=== PATIENT | male | born 1970 | race Two or more races ===

== ENCOUNTER 2019-10-08 20:01 | Emergency (ER) | payer SELFPAY ==
[~2019-10-08] VITALS: Ht 172.7 cm; Wt 81.6 kg
[2019-10-08 20:15] VITALS: BP 137/91
--- NOTE | 2019-10-08 20:15 | NUR ---
ED Nurse Note: Pt walked into ED from home for c/o cough, sob, fever and body aches x 5 days. Pt is aaox4, no acute dsitress noted, ambulatory with steady gait.
--- NOTE | 2019-10-08 20:43 | Emergency Room Report ---
History of Present Illness General Chief Complaint: Flu Like Symptoms Source: Patient Present Illness HPI 49-year-old male presents to the emergency department complaining persistent cough, 9 out of 10 severity sore throat, generalized body aches, subjective fevers and chills x5 days. Patient denies recent travel or ill contacts. Patient states he did not receive this years flu vaccine. Patient also reports increase in fatigue. Patient denies changes in his voice/loss of voice, neck pain/stiffness, photophobia or sudden onset headache. He reports at nighttime he takes Tylenol which provides some relief for his symptoms. Patient states he did not take any Tylenol today. No other aggravating or relieving factors at this time. Denies chest pain at rest, palpitations, cardiac history, or smoking history. Denies history of asthma or COPD. Allergies: Coded Allergies: No Known Allergies (Unverified , 10/08/19) Patient History Past Medical History: see triage record Past Surgical History: none Pertinent Family History: none Reviewed Nursing Documentation: PMH: Agreed; PSxH: Agreed Nursing Documentation-PMH Past Medical History: No Stated History Review of Systems All Other Systems: negative except mentioned in HPI Physical Exam Vital Signs Date Time Temp Pulse Resp B/P (MAP) Pulse Ox O2 Delivery O2 Flow Rate FiO2 10/08/19 20:07 98.2 65 16 137/91 (106) 96 Room Air Sp02 EP Interpretation: reviewed, normal General Appearance: no apparent distress, alert, GCS 15, non-toxic Head: normocephalic, atraumatic Eyes: bilateral eye normal inspection, bilateral eye PERRL ENT: hearing grossly normal, no angioedema, normal voice, TMs + canals normal, uvula midline, moist mucus membranes, nasal congestion, pharyngeal erythema Neck: full range of motion, no meningismus, no bony tend Respiratory: chest non-tender, lungs clear, normal breath sounds, no respiratory distress, no accessory muscle use, no wheezing, speaking full sentences Cardiovascular #1: regular rate, rhythm, no edema Musculoskeletal: normal range of motion, gait/station normal, non-tender Neurologic: alert, motor strength/tone normal, oriented x3, sensory intact, responsive, speech normal Psychiatric: judgement/insight normal Skin: no rash, normal color, normal inspection Lymphatic: no adenopathy Medical Decision Making PA Attestation Dr. Pathak is my supervising Physician whom patient management has been discussed with. Diagnostic Impression: Primary Impression: Viral upper respiratory tract infection with cough ER Course 49-year-old male presents to the emergency department complaining persistent cough, 9 out of 10 severity sore throat, generalized body aches, subjective fevers and chills x5 days. Patient denies recent travel or ill contacts. Patient states he did not receive this years flu vaccine. Patient also reports increase in fatigue. Patient denies changes in his voice/loss of voice, neck pain/stiffness, photophobia or sudden onset headache. He reports at nighttime he takes Tylenol which provides some relief for his symptoms. Patient states he did not take any Tylenol today. No other aggravating or relieving factors at this time. Denies chest pain at rest, palpitations, cardiac history, or smoking history. Denies history of asthma or COPD. Ddx considered but are not limited to URI, pneumonia, PE, strep pharyngitis, meningitis , or bronchitis just to name a few. Vital signs: Pt. is afebrile, the remaining VS are WNL H&PE are most consistent with URI- no meningeal signs, oropharynx is not involved, no evidence of bacterial infection at this time. ORDERS: none required at this time, the diagnosis is clinical ED INTERVENTIONS: None required at this time. --PT. EDUCATION: Discussed antibiotic resistance with inappropriate prescribing of antibiotics for viral illnesses. Discussed signs and symptoms to indicate viral illness versus bacterial illness. DISCHARGE: At this time pt. is stable for d/c to home. Will provide printed patient care instructions, and any necessary prescriptions. Care plan and follow up instructions have been discussed with the patient prior to discharge. Last Vital Signs Date Time Temp Pulse Resp B/P (MAP) Pulse Ox O2 Delivery O2 Flow Rate FiO2 10/08/19 20:07 98.2 65 16 137/91 (106) 96 Room Air Status: improved Disposition: HOME, SELF-CARE Condition: Stable Departure Forms: Return to Work Return to Work Date: Oct 11, 2019 Work Restrictions: None Return to Full Activity: Oct 11, 2019 Patient Instructions: Upper Respiratory Infection, Adult, [id number] Additional Instructions: Take medications as directed. Follow up with a Primary Care Provider in 3-5 days, even if your symptoms have resolved. Return sooner to ED if new symptoms occur, or current symptoms become worse. Do not drink alcohol, drive, or operate heavy machinery while taking Cough Syrup as this may cause drowsiness. - Please note that this Emergency Department Report was dictated using [employer] singer technology software, occasionally this can lead to erroneous entry secondary to interpretation by the dictation equipment. Brittney Herrera Oct 08, 2019 20:43
[2019-10-08] MEDS ORDERED: TESSALON PERLE100 MG ORAL (20:45)
[2019-10-08] MEDS ORDERED: ALBUTEROL SULF8.5 GM INH (20:45)
[2019-10-08] MEDS ORDERED: PROMETHAZINE-D118 ML ORAL (20:45)
[2019-10-08] MEDS ORDERED: NAPROXEN500 M2 ORAL (20:45)
[2019-10-08 20:50] VITALS: BP 137/91
--- NOTE | 2019-10-08 20:50 | NUR ---
ER DISCHARGE NOTE: Patient is cleared to be discharged per ERMD, pt is aox4, on room air, with stable vital signs. pt was given dc and prescription instructions, pt was able to verbalize understanding, pt id band removed. pt is able to ambulate with steady gait. pt took all belongings.
== END 2019-10-08 20:50 | disposition home or self-care (01) ==
LOC: EMR 20:35
DX: J06.9 Acute upper respiratory infection, unspecified (principal); R05 Cough
CPT/HCPCS: 99282

== ENCOUNTER 2019-11-12 23:12 | Emergency (ER) | payer SELFPAY ==
[~2019-11-12] VITALS: Ht 182.9 cm; Wt 86.2 kg
[~2019-11-12 23:12] MED LIST: ALBUTEROL SULF8.5 GM INH; NAPROXEN500 M2 ORAL; PROMETHAZINE-D118 ML ORAL; TESSALON PERLE100 MG ORAL
[2019-11-12 23:26] VITALS: BP 150/93
--- NOTE | 2019-11-12 23:26 | NUR ---
ED Nurse Note: Pt ambulated into ED from home CO cough and headache x 10 days, and fever. PT states headache 10/10 pain. VSS no ss of distress noted. Pt sitting in room. Awaiting ERMD at bedside. Pt denies recent travel or eexposure to others who have travelled.
--- NOTE | 2019-11-12 23:51 | Emergency Room Report ---
History of Present Illness General Chief Complaint: Upper Respiratory Illness Source: Patient Present Illness HPI Patient a 49-year-old male presents after increased headache and generalized body aches for approximately 10 days. He states that he had been having moderate headache. Denies any vomiting or diarrhea. Denies any sore throat. Denies any photophobia. No recent travel or known sick contacts. Allergies: Coded Allergies: No Known Allergies (Unverified , 10/08/19) COVID-19 Screening Contact w/high risk pt: No Recent Travel to affected area: No Experienced COVID-19 symptoms?: No Patient History Past Medical History: see triage record Reviewed Nursing Documentation: PMH: Agreed; PSxH: Agreed Nursing Documentation-PMH Past Medical History: No Stated History Review of Systems All Other Systems: negative except mentioned in HPI Physical Exam Vital Signs Date Time Temp Pulse Resp B/P (MAP) Pulse Ox O2 Delivery O2 Flow Rate FiO2 11/12/19 23:16 99.1 96 18 150/93 (112) 95 Room Air Sp02 EP Interpretation: reviewed, normal General Appearance: normal inspection, well appearing, no apparent distress, alert, GCS 15 Head: atraumatic ENT: normal ENT inspection, hearing grossly normal, normal voice Neck: normal inspection, full range of motion, supple, no bony tend Respiratory: normal inspection, lungs clear, normal breath sounds, no respiratory distress, no retraction, no wheezing Cardiovascular #1: regular rate, rhythm, no edema Gastrointestinal: normal inspection, normal bowel sounds, non tender, soft, no guarding, no hernia Genitourinary: no CVA tenderness Musculoskeletal: normal inspection, back normal, normal range of motion Neurologic: alert, motor strength/tone normal, 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 Differential diagnosis include was not limited to influenza, viral respiratory infection, meningitis, among others. Patient has a benign exam and does not appear to require any imaging or laboratory testing at this time. Patient given oral pain medication. Patient presented for appears to be a viral type headache. Does not appear to have any meningismus. Patient does not appear to have any respiratory distress consistent with severe coronavirus infection. The patient is advised to self quarantine. Patient is advised to return if any worsening condition or if any changes in status that are concerning. This report is dictated with [employer] solicitor software which may occasionally lead to discrepancies related to use of this software. Last Vital Signs Date Time Temp Pulse Resp B/P (MAP) Pulse Ox O2 Delivery O2 Flow Rate FiO2 11/12/19 23:26 96 18 Room Air 11/12/19 23:26 99.1 150/93 95 Status: improved Disposition: HOME, SELF-CARE Condition: Stable Scripts Azithromycin* (ZITHROMAX*) 250 Mg Tablet 250 MG ORAL DAILY, #6 TAB 0 Refills Take two tables once daily for 1 day, then one tablet once daily for 4 days. Prov: Jak Pathak MD 11/13/19 Ibuprofen* (MOTRIN*) 600 Mg Tablet 600 MG ORAL Q8H PRN for For Pain, #30 TAB 0 Refills Prov: Jak Pathak MD 11/13/19 Referrals: NOT CHOSEN [facility]/,REFERRING (PCP) Jak Pathak MD Nov 12, 2019 23:51
--- NOTE | 2019-11-12 23:56 | NUR ---
ED Nurse Note: all medications administered, no ss of distress noted. no adverse reactions noted. FLu swab obtained and sent to lab
[2019-11-13] MEDS ORDERED: IBUPROFEN600 MG ORAL (00:39)
[2019-11-13] MEDS ORDERED: ZITHROMAX250 MG ORAL (00:39)
[2019-11-13 00:44] VITALS: BP 142/89
--- NOTE | 2019-11-13 00:44 | NUR ---
ER DISCHARGE NOTE: Patient is cleared to be discharged home per ERMD, pt is aox4, on room air, with stable vital signs. pt was given dc and prescription instructions, pt was able to verbalize understanding, pt id band removed. pt is able to ambulate with steady gait. pt took all belongings.
== END 2019-11-13 00:44 | disposition home or self-care (01) ==
LOC: EMR 23:24
DX: B34.9 Viral infection, unspecified (principal); R51 Headache
CPT/HCPCS: 86710; 99282